=== PATIENT | male | born 1990 | race Caucasian/White ===

== ENCOUNTER 2017-08-14 23:07 | Emergency (ER) | payer BC ==
[~2017-08-14] VITALS: Ht 167.6 cm; Wt 79.8 kg
[2017-08-14 23:19] VITALS: Ht 167.6 cm; Wt 79.8 kg
[2017-08-15 00:36] VITALS: BP 140/86
== END 2017-08-15 00:36 | disposition home or self-care (01) ==
LOC: ED 23:07
DX: F41.9 Anxiety disorder, unspecified (principal); R42 Dizziness and giddiness; R68.83 Chills (without fever); Z88.2 Allergy status to sulfonamides